=== PATIENT | male | born 1965 | race Caucasian/White ===

== ENCOUNTER 2019-06-26 11:01 | Emergency (ER) | payer BC, OTHER ==
--- NOTE | 2019-06-26 11:21 | EDPHYS ---
Physician Documentation [facility] Name: Amee Alvarado Age: 54 yrs Sex: Male : 1965 Arrival Date: 06/26/2019 Time: 11:03 Bed 13 Private MD: Homero Lorenzo V ED Physician Antonette Trejo HPI: 06/25 11:17 This 54 yrs old Male presents to ER via Ambulatory with complaints of Snake ma2 bite. 11:17 by an unknown animal. Onset: The symptoms/episode began/occurred suddenly, 1 hour(s) ma2 ago. Associated signs and symptoms: Pertinent positives: erythema at site, Pertinent negatives: fever, loss of consciousness, motor deficit, pain at site, swelling at site. Severity of symptoms: At their worst the symptoms were mild, in the emergency department the symptoms are unchanged. he did not see a snake or felt a snake bite, he was working and noticed right forearm lump last hour could have been there for hours. no fangs . Historical: - Allergies: 11:16 No Known Allergies; iw - Home Meds: 11:16 None [Active]; iw - PMHx: 11:16 None; iw - PSHx: 11:16 None; iw - Immunization history:: Adult Immunizations not up to date. - Social history:: Smoking status: Patient denies any tobacco usage or history of. Patient/guardian denies using alcohol, street drugs, The patient lives with family. - Family history:: not pertinent. ROS: 11:17 Constitutional: Negative for fever, chills, and weight loss. ma2 11:17 All other systems are negative. Exam: 11:17 Constitutional: This is a well developed, well nourished patient who is awake, alert, ma2 and in no acute distress. Chest/axilla: Normal chest wall appearance and motion. Nontender with no deformity. No lesions are appreciated. Cardiovascular: Regular rate and rhythm with a normal S1 and S2. No gallops, murmurs, or rubs. Normal PMI, no JVD. No pulse deficits. Respiratory: Lungs have equal breath sounds bilaterally, clear to auscultation and percussion. No rales, rhonchi or wheezes noted. No increased work of breathing, no retractions or nasal flaring. Abdomen/GI: Soft, non-tender, with normal bowel sounds. No distension or tympany. No guarding or rebound. No evidence of tenderness throughout. Skin: right forearm area of erythema and swelling 0.5 cm x 0.5 cm non tender, red not warm no fluctuence, otherwise Warm, dry with normal turgor. Normal color with no rashes, no lesions, and no evidence of cellulitis. MS/ Extremity: Pulses equal, no cyanosis. Neurovascular intact. Full, normal range of motion. Neuro: Awake and alert, GCS 15, oriented to person, place, time, and situation. Cranial nerves II-XII grossly intact. Motor strength 5/5 in all extremities. Sensory grossly intact. Cerebellar exam normal. Normal gait. 11:17 MS/ Extremity: Pulses equal, no cyanosis. Neurovascular intact. Full, normal range ma2 of motion. Vital Signs: 11:13 BP 151 / 97; Pulse 89; Resp 16; Temp 98.2; Pulse Ox 98% on R/A; Weight 90.72 kg; Height iw 5 ft. 8 in. (172.72 cm); 11:13 Body Mass Index 30.41 (90.72 kg, 172.72 cm) iw MDM: 11:05 Patient medically screened. ma2 11:17 Differential diagnosis: superficial laceration, vascular injury, cellulitis. Data ma2 reviewed: vital signs, nurses notes. Counseling: I had a detailed discussion with the patient and/or guardian regarding: the historical points, exam findings, and any diagnostic results supporting the discharge/admit diagnosis, the presence of at least one elevated blood pressure reading (>120/80) during this emergency department visit, the need for outpatient follow up. Response to treatment: the patient's symptoms have mildly improved after treatment. Administered Medications: No medications were administered Disposition: 06/26/19 11:21 Discharged to Home. Impression: Cellulitis of right upper limb. - Condition is Stable. - Discharge Instructions: Cellulitis, Adult. - Prescriptions for Bactrim 400- 80 mg Oral Tablet - take 2 tablets by ORAL route 2 times per day; 20 tablet. - Medication Reconciliation Form, Thank You Letter, Antibiotic Education, Prescription Opioid Use form. - Follow up: Private Physician; When: Tomorrow; Reason: Continuance of care. Signatures: Vera Kerr RN RN iw Nichole Leon RN RN rb1 Antonette Trejo MD MD ma2 Corrections: (The following items were deleted from the chart) 11:20 11:17 Constitutional: This is a well developed, well nourished patient who is awake, ma2 alert, and in no acute distress. Chest/axilla: Normal chest wall appearance and motion. Nontender with no deformity. No lesions are appreciated. Cardiovascular: Regular rate and rhythm with a normal S1 and S2. No gallops, murmurs, or rubs. Normal PMI, no JVD. No pulse deficits. Respiratory: Lungs have equal breath sounds bilaterally, clear to auscultation and percussion. No rales, rhonchi or wheezes noted. No increased work of breathing, no retractions or nasal flaring. Abdomen/GI: Soft, non-tender, with normal bowel sounds. No distension or tympany. No guarding or rebound. No evidence of tenderness throughout. Skin: right forearm area of erythema and swelling 0.5 cm x 0.5 cm non tender, red not warm no fluctuence, otherwise Warm, dry with normal turgor. Normal color with no rashes, no lesions, and no evidence of cellulitis. MS/ Extremity: Pulses equal, no cyanosis. Neurovascular intact. Full, normal range of motion. Neuro: Awake and alert, GCS 15, oriented to person, place, time, and situation. Cranial nerves II-XII grossly intact. Motor strength 5/5 in all extremities. Sensory grossly intact. Cerebellar exam normal. Normal gait. ma2 11:31 11:21 06/26/2019 11:21 Discharged to Home. Impression: Cellulitis of right upper limb. rb1 Condition is Stable. Forms are Medication Reconciliation Form, Thank You Letter, Antibiotic Education, Prescription Opioid Use. Follow up: Private Physician; When: Tomorrow; Reason: Continuance of care. ma2
--- NOTE | 2019-06-26 11:21 | ER ---
Nurse's Notes [facility] [place] Name: Amee Alvarado Age: 54 yrs Sex: Male : 1965 Arrival Date: 06/26/2019 Time: 11:03 Bed 13 Private MD: Homero Lorenzo V Diagnosis: Cellulitis of right upper limb Presentation: 06/25 11:13 Chief complaint: Patient states: was working in yard about 45 minutes ago, noticed he iw had some swelling and tingling to his right forearm, thinks he may have been bitten by a snake, did not see snake or feel the bite, states he can see fang ascencio. Coronavirus screen: Patient denies fever greater than 100.4F, cough, shortness of breath, or difficulty breathing. Proceed with normal triage process. Ebola Screen: Patient negative for fever greater than or equal to 101.5 degrees Fahrenheit, and additional compatible Ebola Virus Disease symptoms Patient denies exposure to infectious person. Patient denies travel to an Ebola-affected area in the 21 days before illness onset. No symptoms or risks identified at this time. Initial Sepsis Screen: Does the patient meet any 2 criteria? No. Patient's initial sepsis screen is negative. Does the patient have a suspected source of infection? No. Patient's initial sepsis screen is negative. Risk Assessment: Do you want to hurt yourself or someone else? Patient reports no desire to harm self or others. 11:13 Method Of Arrival: Ambulatory iw 11:13 Acuity: LAURA 3 iw Triage Assessment: 11:20 Bite description: bite sustained to right forearm by unknown, animal information: rb1 vaccination(s) is not applicable. General: Appears in no apparent distress. comfortable, Behavior is calm, cooperative. Historical: - Allergies: 11:16 No Known Allergies; iw - Home Meds: 11:16 None [Active]; iw - PMHx: 11:16 None; iw - PSHx: 11:16 None; iw - Immunization history:: Adult Immunizations not up to date. - Social history:: Smoking status: Patient denies any tobacco usage or history of. Patient/guardian denies using alcohol, street drugs, The patient lives with family. - Family history:: not pertinent. Screenin:20 Abuse screen: Denies threats or abuse. Nutritional screening: No deficits noted. rb1 Tuberculosis screening: No symptoms or risk factors identified. Fall Risk None identified. Assessment: 11:20 General: Appears in no apparent distress. comfortable, Behavior is calm, cooperative, rb1 Denies fever. Pain: Denies pain. Neuro: Level of Consciousness is awake, alert, obeys commands, Oriented to person, place, time, situation. Cardiovascular: Capillary refill < 3 seconds is brisk in bilateral fingers. Respiratory: Airway is patent Respiratory effort is even, unlabored, Respiratory pattern is regular, symmetrical, Denies shortness of breath. GI: No signs and/or symptoms were reported involving the gastrointestinal system. : No signs and/or symptoms were reported regarding the genitourinary system. Derm: Skin intact Skin is red. Musculoskeletal: Swelling present in right forearm. Vital Signs: 11:13 BP 151 / 97; Pulse 89; Resp 16; Temp 98.2; Pulse Ox 98% on R/A; Weight 90.72 kg; Height iw 5 ft. 8 in. (172.72 cm); 11:13 Body Mass Index 30.41 (90.72 kg, 172.72 cm) ED Course: 11:03 Patient arrived in ED. ag5 11:03 Homero Lorenzo MD is Private Physician. ag5 11:04 Antonette Trejo MD is Attending Physician. ma2 11:16 Triage completed. iw 11:20 Patient has correct armband on for positive identification. Bed in low position. Call rb1 light in reach. Side rails up X 1. Pulse ox on. NIBP on. 11:20 Arm band placed on right wrist. rb1 11:26 Nichole Leon, MALLY is Primary Nurse. rb1 11:31 No provider procedures requiring assistance completed. Patient did not have IV access rb1 during this emergency room visit. Administered Medications: No medications were administered Outcome: 11:21 Discharge ordered by . ma2 11:31 Patient left the ED. rb1 11:31 Discharged to home ambulatory. rb1 11:31 Condition: stable 11:31 Discharge instructions given to patient, Instructed on discharge instructions, follow up and referral plans. medication usage, Demonstrated understanding of instructions, follow-up care, medications, Prescriptions given X 1. Signatures: Vera Kerr RN RN Nichole Leon, MALLY RN [facility] Antonette Trejo MD MD ma2 Yvon, Ajare ag5
[2019-06-26 11:37] VITALS: BP 151/97; TEMP 98.2; O2SAT 98
== END 2019-06-26 11:31 | disposition home or self-care (01) ==
LOC: ER 11:01
DX: L03.113 Cellulitis of right upper limb (principal)
CPT/HCPCS: 99283